=== PATIENT | female | born 1935 | race American Indian/Alaskan Native ===

== ENCOUNTER 2018-03-28 16:28 | Inpatient (IN) | payer MEDICARE ==
[2018-03-28] MEDS ORDERED: NACL 0.9% 500 ML 500 ML IV ONE (17:10)
--- NOTE | 2018-03-28 17:16 | Emergency Department Report ---
ED General Adult HPI - General Stated complaint: ELVATED TEMP 102 Time Seen by Provider: 03/28/18 17:01 - History of Present Illness Initial comments: 82-year-old female that was transported via EMS with a reported fever since noon today. EMS stated the temperature was 102 on their arrival. Patient's glucose was in the 200s. She is a type II diabetic. I do note that she is on multiple psychiatric medications and does have a history of dementia. She has been in the current assisted for the last 2 weeks. They noticed a change in her behavior today. They checked her temperature. This far as I know she does not have any specific symptoms. She is not providing any spontaneous medical history. However she is arousable. She basically answers no to any specific question. She does seem to express understanding of the question. She is not specifically stating her name or that she is in a hospital. She denies headache , chest pain, abdominal pain, nausea vomiting diarrhea. Her review of systems grossly negative. -: hour(s) Associated Symptoms: denies other symptoms ED Review of Systems ROS: Stated complaint: ELVATED TEMP 102 Other details as noted in HPI Comment: Unobtainable due to pts medical conditions ED Past Medical Hx - Past Medical History Hx Diabetes: No Hx Psychiatric Treatment: No Hx Dementia: No ED Course Vital Signs 03/28/18 17:00 Temperature 101.1 F H Pulse Rate 90 Respiratory 16 Rate Blood Pressure 135/70 Blood Pressure 135/70 [Left] O2 Sat by Pulse 97 Oximetry - Reevaluation(s) Reevaluation #1: Nurse informs me that the patient had genital discharge consistent with yeast. She said the urine didn't look that bad on straight cath. The patient is a diabetic with a temperature of 102 or greater. She will be treated for presumed sepsis with urinalysis pending. She will be started on Diflucan. She will be admitted to a MedSurg floor. 03/28/18 18:34 ED Medical Decision Making - Lab Data Result diagrams: 03/28/18 17:34 03/28/18 17:34 Laboratory Results - last 24 hr 03/28/18 03/28/18 03/28/18 17:34 17:34 17:34 WBC 10.3 RBC 4.75 Hgb 12.3 Hct 37.9 MCV 80 MCH 26 L MCHC 32 RDW 14.3 Plt Count 182 Lymph % (Auto) 10.0 L [place] % (Auto) 6.3 Eos % (Auto) 0.3 Baso % (Auto) 0.2 Lymph # 1.0 L [place] # 0.6 Eos # 0.0 Baso # 0.0 Seg Neutrophils % 83.2 H Seg Neutrophils # 8.6 H PT 14.2 INR 1.05 APTT 28.7 VBG pH Sodium 133 L Potassium 3.9 Chloride 94.4 L Carbon Dioxide 26 Anion Gap 17 BUN 22 H Creatinine 0.9 Estimated GFR > 60 BUN/Creatinine Ratio 24 Glucose 203 H Lactic Acid Calcium 9.2 Total Bilirubin 0.30 AST 22 ALT 15 Alkaline Phosphatase 95 NT-Pro-B Natriuret Pep 159.0 Total Protein 7.7 Albumin 3.9 Albumin/Globulin Ratio 1.0 03/28/18 03/28/18 17:34 17:34 WBC RBC Hgb Hct MCV MCH MCHC RDW Plt Count Lymph % (Auto) [place] % (Auto) Eos % (Auto) Baso % (Auto) Lymph # [place] # Eos # Baso # Seg Neutrophils % Seg Neutrophils # PT INR APTT VBG pH 7.385 Sodium Potassium Chloride Carbon Dioxide Anion Gap BUN Creatinine Estimated GFR BUN/Creatinine Ratio Glucose Lactic Acid 1.40 Calcium Total Bilirubin AST ALT Alkaline Phosphatase NT-Pro-B Natriuret Pep Total Protein Albumin Albumin/Globulin Ratio Critical care attestation.: If time is entered above; I have spent that time in minutes in the direct care of this critically ill patient, excluding procedure time. ED Disposition Clinical Impression: Febrile illness, acute, Hyponatremia Hyperglycemia due to type 2 diabetes mellitus Qualifiers: Diabetes mellitus correction insulin use: without correction use Qualified Code(s ): E11.65 - Type 2 diabetes mellitus with hyperglycemia Disposition: OP ADMIT IP TO THIS HOSP Is pt being admited?: Yes Does the pt Need Aspirin: Yes Condition: Stable Instructions: Diabetes Mellitus Type 2 in Adults (ED) Time of Disposition: 18:36
[2018-03-28 17:38] LABS: Basophils % (Auto) 0.2 % (0.0-1.8); Eosinophils % (Auto) 0.3 % (0.0-4.3); Hematocrit 37.9 % (30.3-42.9); Hemoglobin 12.3 gm/dl (10.1-14.3); Mean Corpuscular HGB Conc 32 % (30-34); Mean Corpuscular Volume 80 fl (79-97); Monocytes # (Auto) 0.6 K/mm3 (0.0-0.8); Monocytes % (Auto) 6.3 % (0.0-7.3); Platelet Count 182 K/mm3 (140-440); Red Blood Count 4.75 M/mm3 (3.65-5.03); Red Cell Distribution Width 14.3 % (13.2-15.2)
[2018-03-28 17:40] LABS: Mean Corpuscular Hemoglobin 26 pg (28-32)
--- NOTE | 2018-03-28 17:51 | XRay Report ---
FINAL REPORT EXAM: XR CHEST 1V AP HISTORY: possible Sepsis TECHNIQUE: AP portable view of the chest PRIORS: None. FINDINGS: Lines, tubes, and devices: N/A Lungs and pleura: Trachea is normal in position. Lungs are clear of infiltrate, pleural effusion, vascular congestion, or pneumothorax. Cardiomediastinal silhouette: Cardiac silhouette is borderline enlarged in size.. The aorta is mildly unfolded, likely age related. Calcification of the aorta is noted. Other: Bony structures are intact. IMPRESSION: No acute cardiopulmonary process seen.
[2018-03-28 17:59] LABS: INR 1.05 (0.87-1.13)
[2018-03-28 18:00] LABS: Partial Thromboplastin Time 28.7 Sec. (24.2-36.6)
[2018-03-28 18:03] LABS: Alanine Aminotransferase 15 units/L (7-56); Albumin 3.9 g/dL (3.9-5); BUN/Creatinine Ratio 24; Blood Urea Nitrogen 22 mg/dL (7-17); Calcium 9.2 mg/dL (8.4-10.2); Hemolysis Index 1
[2018-03-28] MEDS ORDERED: BABY ASPIRIN PO ONE (18:36)
[2018-03-28] MEDS ORDERED: NACL 0.9% 1000 ML 1,000 ML IV ONE (18:39)
[2018-03-28] MEDS ORDERED: TYLENOL PO ONE (18:39)
[2018-03-28] MEDS ORDERED: ZOSYN/NS 3.375GM/50ML 3.375 GM/50 ML BAG IV SCH (19:00)
[2018-03-28] MEDS ORDERED: VANCOMYCIN PHARMACY TO DOSE IV SCH (19:00)
[2018-03-28] MEDS ORDERED: VANCOMYCIN VIAL 1,250 MG in NACL 0.9% 250ML 250 ML IV ONE (19:00)
[2018-03-28 19:01] LABS: Bilirubin,Urine NEG (Negative); Blood,Urine SM (Negative); Color,Urine Yellow (Yellow); Hyaline Casts,Urine 3 /LPF; Mucus,Urine FEW /HPF; Protein,Urine <15 mg/dL mg/dL (Negative); Urobilinogen,Urine < 2.0 mg/dL (<2.0)
[2018-03-28] MEDS: DIFLUCAN PO SCH (19:25)
--- NOTE | 2018-03-28 20:44 | History and Physical Report ---
History of Present Illness Date of examination: 03/28/18 Date of admission: 03/28/18 18:37 Chief complaint: Chief complaint Fever for one day History of present illness: History of Present Illness 82-year-old female that was transported via EMS with a reported fever since noon today. EMS stated the temperature was 102 on their arrival. Patient's glucose was in the 200s. She is a type II diabetic. She is on multiple psychiatric medications and does have a history of dementia. She has been in the current nursing home for the last 2 weeks. They noticed a change in her behavior today. They checked her temperature. This far as I know she does not have any specific symptoms. She is not providing any spontaneous medical history. However she is arousable. She basically answers no to any specific question. She does seem to express understanding of the question. She is not specifically stating her name or that she is in a hospital. She denies headache , chest pain, abdominal pain, nausea vomiting diarrhea. Her review of systems grossly negative. Past Medical History Hx Diabetes: No Hx Psychiatric Treatment: No Hx Dementia: No Family history Hypertension Social history Not a smoker and lives in nursing home facility Surgical history Not available Review of Systems ROS: Stated complaint: ELVATED TEMP 102 Other details as noted in HPI Comment: Unobtainable due to pts medical conditions Medications and Allergies Allergies Allergy/AdvReac Type Severity Reaction Status Date / Time No Known Allergies Allergy Verified 03/28/18 19:12 Active Meds: Active Medications Fluconazole (Diflucan) 100 mg PO QDAY [facility] Last Admin: 03/28/18 19:25 Dose: 100 mg Piperacillin Sod/Tazobactam Sod (Zosyn/Ns 3.375gm/50ml) 3.375 gm in 50 mls @ 100 mls/hr IV Q6H [facility]; Protocol Last Admin: 03/28/18 19:28 Dose: 100 mls/hr Sodium Chloride (Nacl 0.9% 1000 Ml) 1,000 mls @ 125 mls/hr IV ONCE ONE Stop: 03/29/18 02:38 Last Admin: 03/28/18 18:49 Dose: 125 mls/hr Vancomycin HCl (Vancomycin/Ns 1 Gm/250 Ml) 1 gm in 250 mls @ 166.667 mls/hr IV Q12H [facility] Vancomycin HCl (Vancomycin Pharmacy To Dose) 1 each IV PKCONSULT [facility]; Protocol Exam - Constitutional Vitals: Temp Pulse Resp BP Pulse Ox 100.1 F H 95 H 16 109/63 97 03/28/18 19:30 03/28/18 19:30 03/28/18 19:30 03/28/18 19:30 03/28/18 19:30 General appearance: Present: no acute distress, well-nourished - EENT Eyes: Present: PERRL ENT: hearing intact, clear oral mucosa - Neck Neck: Present: supple, normal ROM - Respiratory Respiratory effort: normal Respiratory: bilateral: CTA - Cardiovascular Heart Sounds: Present: S1 & S2. Absent: rub, click - Extremities Extremities: pulses symmetrical, No edema Peripheral Pulses: within normal limits - Abdominal General gastrointestinal: Present: soft, non-tender, non-distended, normal bowel sounds Female genitourinary: Present: normal - Integumentary Integumentary: Present: clear, warm, dry - Musculoskeletal Musculoskeletal: gait normal, strength equal bilaterally - Psychiatric Psychiatric: appropriate mood/affect, intact judgment & insight - Neurologic Neurologic: CNII-XII intact, moves all extremities Results - Labs CBC & Chem 7: 03/28/18 17:34 03/28/18 17:34 Labs: Laboratory Last Values WBC 10.3 K/mm3 (4.5-11.0) 03/28/18 17:34 RBC 4.75 M/mm3 (3.65-5.03) 03/28/18 17:34 Hgb 12.3 gm/dl (10.1-14.3) 03/28/18 17:34 Hct 37.9 % (30.3-42.9) 03/28/18 17:34 MCV 80 fl (79-97) 03/28/18 17:34 MCH 26 pg (28-32) L 03/28/18 17:34 MCHC 32 % (30-34) 03/28/18 17:34 RDW 14.3 % (13.2-15.2) 03/28/18 17:34 Plt Count 182 K/mm3 (140-440) 03/28/18 17:34 Lymph % (Auto) 10.0 % (13.4-35.0) L 03/28/18 17:34 [place] % (Auto) 6.3 % (0.0-7.3) 03/28/18 17:34 Eos % (Auto) 0.3 % (0.0-4.3) 03/28/18 17:34 Baso % (Auto) 0.2 % (0.0-1.8) 03/28/18 17:34 Lymph # 1.0 K/mm3 (1.2-5.4) L 03/28/18 17:34 [place] # 0.6 K/mm3 (0.0-0.8) 03/28/18 17:34 Eos # 0.0 K/mm3 (0.0-0.4) 03/28/18 17:34 Baso # 0.0 K/mm3 (0.0-0.1) 03/28/18 17:34 Seg Neutrophils % 83.2 % (40.0-70.0) H 03/28/18 17:34 Seg Neutrophils # 8.6 K/mm3 (1.8-7.7) H 03/28/18 17:34 PT 14.2 Sec. (12.2-14.9) 03/28/18 17:34 INR 1.05 (0.87-1.13) 03/28/18 17:34 APTT 28.7 Sec. (24.2-36.6) 03/28/18 17:34 VBG pH 7.385 (7.320-7.420) 03/28/18 17:34 Sodium 133 mmol/L (137-145) L 03/28/18 17:34 Potassium 3.9 mmol/L (3.6-5.0) 03/28/18 17:34 Chloride 94.4 mmol/L (98-107) L 03/28/18 17:34 Carbon Dioxide 26 mmol/L (22-30) 03/28/18 17:34 Anion Gap 17 mmol/L 03/28/18 17:34 BUN 22 mg/dL (7-17) H 03/28/18 17:34 Creatinine 0.9 mg/dL (0.7-1.2) 03/28/18 17:34 Estimated GFR > 60 ml/min 03/28/18 17:34 BUN/Creatinine Ratio 24 % 03/28/18 17:34 Glucose 203 mg/dL (65-100) H 03/28/18 17:34 Lactic Acid 1.20 mmol/L (0.7-2.0) 03/28/18 19:56 Calcium 9.2 mg/dL (8.4-10.2) 03/28/18 17:34 Total Bilirubin 0.30 mg/dL (0.1-1.2) 03/28/18 17:34 AST 22 units/L (5-40) 03/28/18 17:34 ALT 15 units/L (7-56) 03/28/18 17:34 Alkaline Phosphatase 95 units/L (35-129) 03/28/18 17:34 NT-Pro-B Natriuret Pep 159.0 pg/mL (0-900) 03/28/18 17:34 Total Protein 7.7 g/dL (6.3-8.2) 03/28/18 17:34 Albumin 3.9 g/dL (3.9-5) 03/28/18 17:34 Albumin/Globulin Ratio 1.0 % 03/28/18 17:34 Urine Color Yellow (Yellow) 03/28/18 18:20 Urine Turbidity Clear (Clear) 03/28/18 18:20 Urine pH 5.0 (5.0-7.0) 03/28/18 18:20 Ur Specific [place] 1.017 (1.003-1.030) 03/28/18 18:20 Urine Protein <15 mg/dl mg/dL (Negative) 03/28/18 18:20 Urine Glucose (UA) Neg mg/dL (Negative) 03/28/18 18:20 Urine Ketones Neg mg/dL (Negative) 03/28/18 18:20 Urine Blood Sm (Negative) 03/28/18 18:20 Urine Nitrite Neg (Negative) 03/28/18 18:20 Urine Bilirubin Neg (Negative) 03/28/18 18:20 Urine Urobilinogen < 2.0 mg/dL (<2.0) 03/28/18 18:20 Ur Leukocyte Esterase Neg (Negative) 03/28/18 18:20 Urine WBC (Auto) 2.0 /HPF (0.0-6.0) 03/28/18 18:20 Urine RBC (Auto) 1.0 /HPF (0.0-6.0) 03/28/18 18:20 U Epithel Cells (Auto) < 1.0 /HPF (0-13.0) 03/28/18 18:20 Hyaline Casts 3 /LPF 03/28/18 18:20 Urine Mucus Few /HPF 03/28/18 18:20 Short CBC 03/28/18 Range/Units 17:34 WBC 10.3 (4.5-11.0) K/mm3 Hgb 12.3 (10.1-14.3) gm/dl Hct 37.9 (30.3-42.9) % Plt Count 182 (140-440) K/mm3 BMP 03/28/18 17:34 Sodium 133 L Potassium 3.9 Chloride 94.4 L Carbon Dioxide 26 BUN 22 H Creatinine 0.9 Glucose 203 H Calcium 9.2 Liver Function 03/28/18 Range/Units 17:34 Total Bilirubin 0.30 (0.1-1.2) mg/dL AST 22 (5-40) units/L ALT 15 (7-56) units/L Alkaline Phosphatase 95 (35-129) units/L Albumin 3.9 (3.9-5) g/dL Urine 03/28/18 Range/Units 18:20 Urine Color Yellow (Yellow) Urine pH 5.0 (5.0-7.0) Ur Specific [place] 1.017 (1.003-1.030) Urine Protein <15 mg/dl (Negative) mg/dL Urine Glucose (UA) Neg (Negative) mg/dL Assessment and Plan Advance Directives: Yes (full code) VTE prophylaxis?: Chemical (full code) Plan of care discussed with patient/family: Yes - Patient Problems (1) Sepsis Current Visit: Yes Status: Acute Qualifiers: Sepsis type: sepsis due to unspecified organism Qualified Code(s): A41.9 - Sepsis, unspecified organism Plan to address problem: Source unclear Will treat with Zosyn And vancomycin urine clean (2) Acute encephalopathy Current Visit: Yes Status: Acute Plan to address problem: Secondary to sepsis (3) Hyponatremia Current Visit: Yes Status: Acute Plan to address problem: IV fluids for now (4) Dementia Current Visit: Yes Status: Acute Qualifiers: Dementia type: unspecified type Dementia behavioral disturbance: without behavioral disturbance Qualified Code(s): F03.90 - Unspecified dementia without behavioral disturbance Plan to address problem: Supportive care (5) Hyperglycemia due to type 2 diabetes mellitus Current Visit: Yes Status: Chronic Qualifiers: Diabetes mellitus residential insulin use: without exterminator termite use Qualified Code(s): E11.65 - Type 2 diabetes mellitus with hyperglycemia Plan to address problem: Coverage (6) DVT prophylaxis Current Visit: Yes Status: Acute Plan to address problem: Heparin
[2018-03-28] MEDS ORDERED: ZOFRAN IV PRN (20:45)
[2018-03-28] MEDS ORDERED: TYLENOL PO PRN (20:45)
[2018-03-28] MEDS ORDERED: SODIUM CHLORIDE FLUSH SYRINGE 10 ML IV PRN (20:45)
[2018-03-28] MEDS ORDERED: PEPCID PO SCH (22:00)
[2018-03-28] MEDS: PEPCID PO SCH ×2 (23:00→23:03)
[2018-03-28] MEDS: SODIUM CHLORIDE FLUSH SYRINGE 10 ML IV SCH (23:03)
[2018-03-29] MEDS ORDERED: ZOSYN/NS 3.375GM/50ML 3.375 GM/50 ML BAG IV SCH (03:00)
[2018-03-29] MEDS: NACL 0.9% 1000 ML 1,000 ML IV SCH ×3 (03:20→19:29)
[2018-03-29] MEDS: ZOSYN/NS 3.375GM/50ML 3.375 GM/50 ML BAG IV SCH ×3 (03:25→22:15)
[2018-03-29 05:47] LABS: Basophils % (Auto) 0.4 % (0.0-1.8); Eosinophils # (Auto) 0.1 K/mm3 (0.0-0.4); Eosinophils % (Auto) 1.4 % (0.0-4.3); Hematocrit 33.9 % (30.3-42.9); Hemoglobin 10.7 gm/dl (10.1-14.3); Lymphocytes # (Auto) 1.1 K/mm3 (1.2-5.4); Lymphocytes % (Auto) 11.4 % (13.4-35.0); Mean Corpuscular HGB Conc 32 % (30-34); Mean Corpuscular Volume 81 fl (79-97); Monocytes % (Auto) 9.7 % (0.0-7.3); Platelet Count 162 K/mm3 (140-440); Red Blood Count 4.19 M/mm3 (3.65-5.03); Red Cell Distribution Width 14.4 % (13.2-15.2)
[2018-03-29 05:50] LABS: Mean Corpuscular Hemoglobin 26 pg (28-32)
[2018-03-29 06:10] LABS: Alanine Aminotransferase 12 units/L (7-56); Albumin 3.3 g/dL (3.9-5); BUN/Creatinine Ratio 20; Blood Urea Nitrogen 14 mg/dL (7-17); Calcium 8.2 mg/dL (8.4-10.2); Hemolysis Index 2
[2018-03-29] MEDS: PEPCID PO SCH ×2 (10:42→22:06)
[2018-03-29] MEDS: DIFLUCAN PO SCH (10:43)
[2018-03-29] MEDS: SODIUM CHLORIDE FLUSH SYRINGE 10 ML IV SCH ×2 (10:43→22:14)
--- NOTE | 2018-03-29 10:56 | Progress Note ---
Assessment and Plan (1) Sepsis Current Visit: Yes Status: Acute Qualifiers: Sepsis type: sepsis due to unspecified organism Qualified Code(s): A41.9 - Sepsis, unspecified organism Plan to address problem: Source unclear Will treat with Zosyn And vancomycin urine clean Will get CT abdoman and pelvis (2) Acute encephalopathy - toxic Current Visit: Yes Status: Acute Plan to address problem: Secondary to sepsis (3) Hyponatremia Current Visit: Yes Status: Acute Plan to address problem: IV fluids for now (4) Dementia Current Visit: Yes Status: Acute Qualifiers: Dementia type: unspecified type Dementia behavioral disturbance: without behavioral disturbance Qualified Code(s): F03.90 - Unspecified dementia without behavioral disturbance Plan to address problem: Supportive care (5) Hyperglycemia due to type 2 diabetes mellitus Current Visit: Yes Status: Chronic Qualifiers: Diabetes mellitus intermission coordinator insulin use: without intermission coordinator use Qualified Code(s): E11.65 - Type 2 diabetes mellitus with hyperglycemia Plan to address problem: Coverage with SSI (6) DVT prophylaxis Current Visit: Yes Status: Acute Plan to address problem: Heparin Subjective Date of service: 03/29/18 Principal diagnosis: sepsis, metabolic encephalopathy Interval history: Pt seen and examined. No overnight event. No new comnplaint. Objective - Constitutional Vitals: Vital Signs - 12hr 03/29/18 03/29/18 03:34 07:21 Temperature 99.0 F 97.1 F L Pulse Rate 66 66 Respiratory 17 20 Rate Blood Pressure 135/69 Blood Pressure 112/64 [Left] O2 Sat by Pulse 98 97 Oximetry General appearance: Present: no acute distress, well-nourished, other - EENT Eyes: PERRL, EOM intact - Neck Neck: supple, normal ROM - Respiratory Respiratory effort: normal Respiratory: bilateral: CTA - Cardiovascular Rhythm: regular Heart Sounds: Present: S1 & S2. Absent: gallop, rub Extremities: pulses intact, No edema, normal color, Full ROM - Gastrointestinal General gastrointestinal: Present: soft, non-tender, non-distended, normal bowel sounds - Integumentary Integumentary: clear, warm, dry - Musculoskeletal Musculoskeletal: generalized weakness - Neurologic Neurologic: other (confused) - Psychiatric Psychiatric: agitated - Labs CBC & Chem 7: 03/29/18 04:57 03/29/18 04:57 Labs: Abnormal lab results 03/28/18 03/28/18 03/28/18 Range/Units 17:34 17:34 17:34 MCH 26 L (28-32) pg Lymph % (Auto) 10.0 L (13.4-35.0) % [place] % (Auto) (0.0-7.3) % Lymph # 1.0 L (1.2-5.4) K/mm3 [place] # (0.0-0.8) K/mm3 Seg Neutrophils % 83.2 H (40.0-70.0) % Seg Neutrophils # 8.6 H (1.8-7.7) K/mm3 Sodium 133 L (137-145) mmol/L Chloride 94.4 L (98-107) mmol/L BUN 22 H (7-17) mg/dL Glucose 203 H (65-100) mg/dL POC Glucose (70-105) Hemoglobin A1c 8.0 H (4-6) % Calcium (8.4-10.2) mg/dL Total Protein (6.3-8.2) g/dL Albumin (3.9-5) g/dL 03/29/18 03/29/18 03/29/18 Range/Units 04:57 04:57 07:24 MCH 26 L (28-32) pg Lymph % (Auto) 11.4 L (13.4-35.0) % [place] % (Auto) 9.7 H (0.0-7.3) % Lymph # 1.1 L (1.2-5.4) K/mm3 [place] # 1.0 H (0.0-0.8) K/mm3 Seg Neutrophils % 77.1 H (40.0-70.0) % Seg Neutrophils # (1.8-7.7) K/mm3 Sodium (137-145) mmol/L Chloride (98-107) mmol/L BUN (7-17) mg/dL Glucose 148 H (65-100) mg/dL POC Glucose 142 H (70-105) Hemoglobin A1c (4-6) % Calcium 8.2 L (8.4-10.2) mg/dL Total Protein 6.0 L D (6.3-8.2) g/dL Albumin 3.3 L (3.9-5) g/dL
--- NOTE | 2018-03-29 17:14 | Cat Scan Report ---
FINAL REPORT EXAM: CT ABDOMEN PELVIS W CON HISTORY: sepsis TECHNIQUE: Standard enhanced CT of the abdomen and pelvis. Coronal and sagittal reconstruction was also performed. Delayed imaging of the kidneys and bladder was obtained. Contrast: 100 mL Omnipaque 300 given IV. 450 cc Readi-Cat given as oral. PRIORS: None. FINDINGS: Within the abdomen, the liver, spleen, pancreas, gallbladder, and adrenal glands are unremarkable. There is a 4.0 cm cyst off upper pole right kidney. Several smaller cysts are present in both kidneys. No evidence for retroperitoneal or pelvic lymphadenopathy is seen. The bowel loops have normal caliber. No soft tissue mass, fluid collection, inflammatory change, or free air is seen within the abdomen or pelvis. The appendix is not well-visualized. Moderate calcification of aorta is seen. Diverticulosis is scattered throughout the colon but most marked in the descending and sigmoid region. No evidence for active diverticulitis seen. Within the pelvis, the bladder is unremarkable. The uterus is atrophic. No evidence for mass or lymphadenopathy is seen in the pelvis. Images through the upper abdomen include the lung bases which demonstrates mild bibasilar atelectasis. Bony structures show degenerative disc changes throughout the lumbar spine with bilateral facet joint degenerative changes at L3 through S1. 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 IMPRESSION: No acute intra-abdominal process noted. Bilateral renal cysts and diverticulosis. Mild bibasilar atelectasis
[2018-03-29] MEDS ORDERED: ATIVAN PO PRN (17:38)
[2018-03-29] MEDS ORDERED: VANCOMYCIN/NS 1 GM/250 ML 1 GM/250 ML BAG IV SCH (18:00)
[2018-03-29] MEDS: MORPHINE IV PRN (22:06)
[2018-03-30] MEDS: MORPHINE IV PRN (02:52)
[2018-03-30] MEDS: ZOSYN/NS 3.375GM/50ML 3.375 GM/50 ML BAG IV SCH (04:45)
[2018-03-30 06:03] LABS: Basophils # (Auto) 0.1 K/mm3 (0.0-0.1); Basophils % (Auto) 0.7 % (0.0-1.8); Eosinophils # (Auto) 0.2 K/mm3 (0.0-0.4); Eosinophils % (Auto) 2.3 % (0.0-4.3); Hematocrit 33.8 % (30.3-42.9); Hemoglobin 11.3 gm/dl (10.1-14.3); Lymphocytes # (Auto) 1.5 K/mm3 (1.2-5.4); Lymphocytes % (Auto) 18.7 % (13.4-35.0); Mean Corpuscular HGB Conc 33 % (30-34); Mean Corpuscular Hemoglobin 26 pg (28-32); Mean Corpuscular Volume 79 fl (79-97); Monocytes # (Auto) 0.9 K/mm3 (0.0-0.8); Platelet Count 193 K/mm3 (140-440); Red Blood Count 4.29 M/mm3 (3.65-5.03)
[2018-03-30 06:13] LABS: INR 1.09 (0.87-1.13)
[2018-03-30 06:29] LABS: Alanine Aminotransferase 12 units/L (7-56); Albumin 3.4 g/dL (3.9-5); BUN/Creatinine Ratio 10; Blood Urea Nitrogen 6 mg/dL (7-17); Calcium 8.7 mg/dL (8.4-10.2); Hemolysis Index 22
[2018-03-30] MEDS ORDERED: K-DUR PO NR (08:00)
[2018-03-30] MEDS: DIFLUCAN PO SCH (10:01)
[2018-03-30] MEDS: PEPCID PO SCH (10:01)
[2018-03-30] MEDS: SODIUM CHLORIDE FLUSH SYRINGE 10 ML IV SCH (10:02)
--- NOTE | 2018-03-30 11:12 | Progress Note ---
Subjective Date of service: 03/30/18 Principal diagnosis: sepsis, metabolic encephalopathy Objective - Constitutional Vitals: Vital Signs - 12hr 03/30/18 03/30/18 03/30/18 00:30 03:08 07:25 Temperature 98.6 F 98.7 F 97.7 F Pulse Rate 72 60 64 Respiratory 18 16 18 Rate Blood Pressure 114/65 133/74 Blood Pressure 158/75 [Left] O2 Sat by Pulse 95 99 97 Oximetry - Labs CBC & Chem 7: 03/30/18 05:37 03/30/18 05:37 Labs: Abnormal lab results 03/29/18 03/29/18 03/29/18 Range/Units 11:35 16:19 22:22 MCH (28-32) pg [place] % (Auto) (0.0-7.3) % [place] # (0.0-0.8) K/mm3 Potassium (3.6-5.0) mmol/L BUN (7-17) mg/dL Creatinine (0.7-1.2) mg/dL Glucose (65-100) mg/dL POC Glucose 121 H 131 H 141 H (70-105) Magnesium (1.7-2.3) mg/dL Albumin (3.9-5) g/dL 03/30/18 03/30/18 03/30/18 Range/Units 05:37 05:37 07:32 MCH 26 L (28-32) pg [place] % (Auto) 11.0 H (0.0-7.3) % [place] # 0.9 H (0.0-0.8) K/mm3 Potassium 3.3 L (3.6-5.0) mmol/L BUN 6 L (7-17) mg/dL Creatinine 0.6 L (0.7-1.2) mg/dL Glucose 149 H (65-100) mg/dL POC Glucose 134 H (70-105) Magnesium 1.20 L (1.7-2.3) mg/dL Albumin 3.4 L (3.9-5) g/dL
[2018-03-30] MEDS ORDERED: AUGMENTIN 500 MG PO SCH (13:00)
[2018-03-30] MEDS: NACL 0.9% 1000 ML 1,000 ML IV SCH (13:53)
--- NOTE | 2018-03-30 14:43 | Discharge Summary ---
Providers - Providers Date of Admission: 03/28/18 18:37 Date of discharge: 03/30/18 Attending physician: BRENDA CLARK 03/28/18 Consult to Case Management [CONS] Routine Services Needed at Discharge: Home Health Services Notified:: lizzie Primary care physician: WEBBING INSPECTOR Hospitalization Condition: Stable Hospital course: 1) Sepsis Current Visit: Yes Status: Acute Qualifiers: Sepsis type: sepsis due to unspecified organism Qualified Code(s): A41.9 - Sepsis, unspecified organism Plan to address problem: Source unclear Will treat with Zosyn And vancomycin urine clean Will get CT abdoman and pelvis (2) Acute encephalopathy - toxic Current Visit: Yes Status: Acute Plan to address problem: Secondary to sepsis (3) Hyponatremia Current Visit: Yes Status: Acute Plan to address problem: IV fluids for now (4) Dementia Current Visit: Yes Status: Acute Qualifiers: Dementia type: unspecified type Dementia behavioral disturbance: without behavioral disturbance Qualified Code(s): F03.90 - Unspecified dementia without behavioral disturbance Plan to address problem: Supportive care (5) Hyperglycemia due to type 2 diabetes mellitus Current Visit: Yes Status: Chronic Qualifiers: Diabetes mellitus middle or intermediate school principal insulin use: without usp use Qualified Code(s): E11.65 - Type 2 diabetes mellitus with hyperglycemia Plan to address problem: Coverage with SSI (6) DVT prophylaxis Current Visit: Yes Status: Acute Plan to address problem: Heparin Disposition: DC-01 TO HOME OR SELFCARE Time spent for discharge: 32 minutes Exam - Constitutional Vitals: Temp Pulse Resp BP Pulse Ox 97.7 F 64 18 133/74 97 03/30/18 07:25 03/30/18 07:25 03/30/18 07:25 03/30/18 07:25 03/30/18 07:25 Plan Activity: fall precautions Weight Bearing Status: Non-Weight Bearing Diet: regular Follow up with: PRIMARY CARE, [Primary Care Provider] - 3-5 Days Prescriptions: Amoxicillin/K Clav Tab [Augmentin 500 MG TAB] 1 each PO BID #14 tablet
[2018-03-30 20:40] VITALS: BP 145/75
[2018-03-30] MEDS ORDERED: LOPRESSOR PO SCH (22:00)
[2018-03-30] MEDS ORDERED: NAMENDA PO SCH (22:00)
[2018-03-30] MEDS ORDERED: NON-FORMULARY (Risperidone [Risperdal] 2 MG) PO SCH (22:00)
[2018-03-30] MEDS ORDERED: REMERON PO SCH (22:00)
[2018-03-30] MEDS ORDERED: ARICEPT PO SCH (22:00)
[2018-03-31] MEDS ORDERED: COZAAR PO SCH (10:00)
[2018-03-31] MEDS ORDERED: NORVASC PO SCH (10:00)
== END 2018-03-30 21:00 | disposition home health service (06) | DRG 871 ==
LOC: ED 16:28 → 3A 18:37 → 2B-ACE 19:26
PROVIDERS: ADMIT Internal Medicine; ATTEND Internal Medicine
DX: A41.9 Sepsis, unspecified organism (principal); G92 Toxic encephalopathy; E87.1 Hypo-osmolality and hyponatremia; E11.65 Type 2 diabetes mellitus with hyperglycemia; F03.90 Unspecified dementia, unspecified severity, without behavioral disturbance, psychotic disturbance, mood disturbance, and anxiety; Z82.49 Family history of ischemic heart disease and other diseases of the circulatory system; Z79.4 Long term (current) use of insulin
CPT/HCPCS: 36415; 71045; 74177; 80053; 81001; 82140; 82805; 82962; 83036; 83735; 83880; 84100; 85025; 85610; 85730; 87040; 87076; 87086; 87186; 93005; 93010; J2270; J2543; J3370; J7030; J7040; J7050; Q9967

== ENCOUNTER 2018-04-05 10:07 | Emergency (ER) | payer MEDICARE ==
[2018-04-05 10:57] LABS: Basophils # (Auto) 0.1 K/mm3 (0.0-0.1); Basophils % (Auto) 0.7 % (0.0-1.8); Eosinophils % (Auto) 0.3 % (0.0-4.3); Hematocrit 34.6 % (30.3-42.9); Hemoglobin 11.4 gm/dl (10.1-14.3); Lymphocytes # (Auto) 0.5 K/mm3 (1.2-5.4); Lymphocytes % (Auto) 5.3 % (13.4-35.0); Mean Corpuscular HGB Conc 33 % (30-34); Mean Corpuscular Hemoglobin 26 pg (28-32); Mean Corpuscular Volume 79 fl (79-97); Monocytes # (Auto) 0.5 K/mm3 (0.0-0.8); Monocytes % (Auto) 5.1 % (0.0-7.3); Platelet Count 217 K/mm3 (140-440); Red Blood Count 4.37 M/mm3 (3.65-5.03); Red Cell Distribution Width 14.2 % (13.2-15.2)
[2018-04-05 11:16] LABS: Albumin 3.9 g/dL (3.9-5); Calcium 9.6 mg/dL (8.4-10.2)
[2018-04-05 11:33] LABS: Bilirubin,Urine NEG (Negative); Blood,Urine NEG (Negative); Color,Urine Amber (Yellow); Mucus,Urine FEW /HPF
--- NOTE | 2018-04-05 11:45 | Emergency Department Report ---
ED Altered Mental Status HPI - General Chief Complaint: Altered Mental Status Stated Complaint: ALTERED MENTAL STATUS Time Seen by Provider: 04/05/18 11:35 Source: EMS Mode of arrival: Stretcher Limitations: Altered Mental Status - History of Present Illness Initial Comments: Patient is 82 years old female with history of diabetes, hypertension, dementia on multiple psychiatric medication, prison patient. Patient brought to the ER for evaluation of altered mental status with decreased responsiveness, unknown time of onset. Patient is not communicating, she will only answer to her name. MD Complaint: altered mental status, decreased responsiveness - Related Data Home Medications Medication Instructions Recorded Confirmed Last Taken Amlodipine Besylate [Norvasc] 10 mg PO DAILY 03/29/18 03/29/[address] [Depakote Dr] 125 mg PO DAILY 03/29/18 03/29/18 Unknown Divalproex Sodium [Depakote] 250 mg PO QHS 03/29/18 03/29/18 Unknown Donepezil HCl 10 mg PO QHS 03/29/18 03/29/18 Unknown Losartan Potassium [Cozaar] 50 mg PO DAILY 03/29/18 03/29/18 Unknown Memantine [Namenda] 10 mg PO BID 03/29/18 03/29/18 Unknown Metoprolol [Lopressor TAB] 50 mg PO QHS 03/29/18 03/29/18 Unknown Mirtazapine 15 mg PO QHS 03/29/18 03/29/18 Unknown QUEtiapine [SEROquel] 25 mg PO BID 03/29/18 03/29/18 Unknown Sitagliptin Phos/Metformin HCl 1 tab PO DAILY 03/29/18 03/29/18 Unknown [Janumet 50-500 mg Tablet] risperiDONE [Risperdal] 2 mg PO BID 03/29/18 03/29/18 Unknown Previous Rx's Medication Instructions Recorded Last Taken Type Amoxicillin/K Clav Tab [Augmentin 1 each PO BID #14 tablet 03/30/18 Unknown Rx 500 MG TAB] Allergies Allergy/AdvReac Type Severity Reaction Status Date / Time No Known Allergies Allergy Verified 03/28/18 19:12 ED Review of Systems ROS: Stated complaint: ALTERED MENTAL STATUS Other details as noted in HPI Comment: Unobtainable due to pts medical conditions ED Past Medical Hx - Past Medical History Hx Hypertension: Yes Hx Diabetes: Yes (Non-Insulin Dependent) Hx Psychiatric Treatment: No Hx Dementia: Yes Additional medical history: Depression; cardiomegaly; spinal stenosis - Social History Smoking Status: Unknown if ever smoked Substance Use Type: None - Medications Home Medications: Home Medications Medication Instructions Recorded Confirmed Last Taken Type Amlodipine Besylate [Norvasc] 10 mg PO DAILY 03/29/18 03/29/[address] [Depakote Dr] 125 mg PO DAILY 03/29/18 03/29/18 Unknown History Divalproex Sodium [Depakote] 250 mg PO QHS 03/29/18 03/29/18 Unknown History Donepezil HCl 10 mg PO QHS 03/29/18 03/29/18 Unknown History Losartan Potassium [Cozaar] 50 mg PO DAILY 03/29/18 03/29/18 Unknown History Memantine [Namenda] 10 mg PO BID 03/29/18 03/29/18 Unknown History Metoprolol [Lopressor TAB] 50 mg PO QHS 03/29/18 03/29/18 Unknown History Mirtazapine 15 mg PO QHS 03/29/18 03/29/18 Unknown History QUEtiapine [SEROquel] 25 mg PO BID 03/29/18 03/29/18 Unknown History Sitagliptin Phos/Metformin HCl 1 tab PO DAILY 03/29/18 03/29/18 Unknown History [Janumet 50-500 mg Tablet] risperiDONE [Risperdal] 2 mg PO BID 03/29/18 03/29/18 Unknown History Amoxicillin/K Clav Tab [Augmentin 1 each PO BID #14 tablet 03/30/18 Unknown Rx 500 MG TAB] ED Physical Exam - General Limitations: Altered Mental Status General appearance: obtunded - Head Head exam: Present: atraumatic, normocephalic, normal inspection - ENT ENT exam: Present: normal exam, mucous membranes moist, TM's normal bilaterally , normal external ear exam - Neck Neck exam: Present: normal inspection, full ROM. Absent: tenderness, meningismus, lymphadenopathy, thyromegaly - Respiratory Respiratory exam: Present: normal lung sounds bilaterally - Cardiovascular Cardiovascular Exam: Present: regular rate, normal rhythm, normal heart sounds - GI/Abdominal GI/Abdominal exam: Present: soft, normal bowel sounds. Absent: distended, tenderness, guarding, rebound, rigid, organomegaly, mass, bruit, pulsatile mass - Extremities Exam Extremities exam: Present: normal inspection, full ROM, normal capillary refill - Neurological Exam Neurological exam: Present: altered - Skin Skin exam: Present: warm, intact, normal color ED Course Vital Signs 04/05/18 04/05/18 04/05/18 10:23 10:45 11:00 Temperature 97.6 F Pulse Rate 77 68 Respiratory 20 19 15 Rate Blood Pressure 127/66 Blood Pressure 114/76 [Left] O2 Sat by Pulse 97 100 Oximetry 04/05/18 04/05/18 04/05/18 11:15 15:11 18:18 Temperature 97.4 F L Pulse Rate 67 72 97 H Respiratory 16 17 16 Rate Blood Pressure 125/66 Blood Pressure 129/70 119/78 [Left] O2 Sat by Pulse 100 100 Oximetry - Reevaluation(s) Reevaluation #1: 04/05/18 15:02 Patient now is awake and alert and able to answer some questions. Reevaluation #2: 04/05/18 16:02 Patient is aware, alert slightly drowsy some question. No acute distress. - Lab Data Result diagrams: 04/05/18 10:39 04/05/18 10:39 Lab Results 04/05/18 04/05/18 04/05/18 Range/Units 10:28 10:28 10:39 WBC 9.6 (4.5-11.0) K/mm3 RBC 4.37 (3.65-5.03) M/mm3 Hgb 11.4 (10.1-14.3) gm/dl Hct 34.6 (30.3-42.9) % MCV 79 (79-97) fl MCH 26 L (28-32) pg MCHC 33 (30-34) % RDW 14.2 (13.2-15.2) % Plt Count 217 (140-440) K/mm3 Lymph % (Auto) 5.3 L (13.4-35.0) % Eagle % (Auto) 5.1 (0.0-7.3) % Eos % (Auto) 0.3 (0.0-4.3) % Baso % (Auto) 0.7 (0.0-1.8) % Lymph # 0.5 L (1.2-5.4) K/mm3 Eagle # 0.5 (0.0-0.8) K/mm3 Eos # 0.0 (0.0-0.4) K/mm3 Baso # 0.1 (0.0-0.1) K/mm3 Seg Neutrophils % 88.6 H (40.0-70.0) % Seg Neutrophils # 8.5 H (1.8-7.7) K/mm3 Sodium (137-145) mmol/L Potassium (3.6-5.0) mmol/L Chloride (98-107) mmol/L Carbon Dioxide (22-30) mmol/L Anion Gap mmol/L BUN (7-17) mg/dL Creatinine (0.7-1.2) mg/dL Estimated GFR ml/min BUN/Creatinine Ratio % Glucose (65-100) mg/dL Calcium (8.4-10.2) mg/dL Total Bilirubin (0.1-1.2) mg/dL AST (5-40) units/L ALT (7-56) units/L Alkaline Phosphatase (35-129) units/L Ammonia (25-60) umol/L Troponin T (0.00-0.029) ng/mL Total Protein (6.3-8.2) g/dL Albumin (3.9-5) g/dL Albumin/Globulin Ratio % TSH (0.270-4.200) mlU/mL Urine Color Grace (Yellow) Urine Turbidity Clear (Clear) Urine pH 5.0 (5.0-7.0) Ur Specific [place] 1.020 (1.003-1.030) Urine Protein 30 mg/dl (Negative) mg/dL Urine Glucose (UA) Neg (Negative) mg/dL Urine Ketones Tr (Negative) mg/dL Urine Blood Neg (Negative) Urine Nitrite Neg (Negative) Urine Bilirubin Neg (Negative) Urine Urobilinogen 2.0 (<2.0) mg/dL Ur Leukocyte Esterase Neg (Negative) Urine WBC (Auto) 2.0 (0.0-6.0) /HPF Urine RBC (Auto) 2.0 (0.0-6.0) /HPF U Epithel Cells (Auto) < 1.0 (0-13.0) /HPF Urine Mucus Few /HPF Urine Opiates Screen Presumptive negative Urine Methadone Screen Presumptive negative Ur Barbiturates Screen Presumptive negative Ur Phencyclidine Scrn Presumptive negative Ur Amphetamines Screen Presumptive negative U Benzodiazepines Scrn Presumptive negative Urine Cocaine Screen Presumptive negative U Marijuana (THC) Screen Presumptive negative Drugs of Abuse Note Disclamer Plasma/Serum Alcohol (0-0.07) % 04/05/18 04/05/18 04/05/18 Range/Units 10:39 10:39 10:39 WBC (4.5-11.0) K/mm3 RBC (3.65-5.03) M/mm3 Hgb (10.1-14.3) gm/dl Hct (30.3-42.9) % MCV (79-97) fl MCH (28-32) pg MCHC (30-34) % RDW (13.2-15.2) % Plt Count (140-440) K/mm3 Lymph % (Auto) (13.4-35.0) % Eagle % (Auto) (0.0-7.3) % Eos % (Auto) (0.0-4.3) % Baso % (Auto) (0.0-1.8) % Lymph # (1.2-5.4) K/mm3 Eagle # (0.0-0.8) K/mm3 Eos # (0.0-0.4) K/mm3 Baso # (0.0-0.1) K/mm3 Seg Neutrophils % (40.0-70.0) % Seg Neutrophils # (1.8-7.7) K/mm3 Sodium 137 (137-145) mmol/L Potassium 4.8 (3.6-5.0) mmol/L Chloride 97.1 L (98-107) mmol/L Carbon Dioxide 24 (22-30) mmol/L Anion Gap 21 mmol/L BUN 25 H (7-17) mg/dL Creatinine 1.5 H (0.7-1.2) mg/dL Estimated GFR 40 ml/min BUN/Creatinine Ratio 17 % Glucose 267 H (65-100) mg/dL Calcium 9.6 (8.4-10.2) mg/dL Total Bilirubin 0.30 (0.1-1.2) mg/dL AST 14 (5-40) units/L ALT 11 (7-56) units/L Alkaline Phosphatase 84 (35-129) units/L Ammonia (25-60) umol/L Troponin T (0.00-0.029) ng/mL Total Protein 7.3 (6.3-8.2) g/dL Albumin 3.9 (3.9-5) g/dL Albumin/Globulin Ratio 1.1 % TSH 2.160 (0.270-4.200) mlU/mL Urine Color (Yellow) Urine Turbidity (Clear) Urine pH (5.0-7.0) Ur Specific [place] (1.003-1.030) Urine Protein (Negative) mg/dL Urine Glucose (UA) (Negative) mg/dL Urine Ketones (Negative) mg/dL Urine Blood (Negative) Urine Nitrite (Negative) Urine Bilirubin (Negative) Urine Urobilinogen (<2.0) mg/dL Ur Leukocyte Esterase (Negative) Urine WBC (Auto) (0.0-6.0) /HPF Urine RBC (Auto) (0.0-6.0) /HPF U Epithel Cells (Auto) (0-13.0) /HPF Urine Mucus /HPF Urine Opiates Screen Urine Methadone Screen Ur Barbiturates Screen Ur Phencyclidine Scrn Ur Amphetamines Screen U Benzodiazepines Scrn Urine Cocaine Screen U Marijuana (THC) Screen Drugs of Abuse Note Plasma/Serum Alcohol < 0.01 (0-0.07) % 04/05/18 04/05/18 04/05/18 Range/Units 12:17 12:17 18:41 WBC (4.5-11.0) K/mm3 RBC (3.65-5.03) M/mm3 Hgb (10.1-14.3) gm/dl Hct (30.3-42.9) % MCV (79-97) fl MCH (28-32) pg MCHC (30-34) % RDW (13.2-15.2) % Plt Count (140-440) K/mm3 Lymph % (Auto) (13.4-35.0) % Eagle % (Auto) (0.0-7.3) % Eos % (Auto) (0.0-4.3) % Baso % (Auto) (0.0-1.8) % Lymph # (1.2-5.4) K/mm3 [place] # (0.0-0.8) K/mm3 Eos # (0.0-0.4) K/mm3 Baso # (0.0-0.1) K/mm3 Seg Neutrophils % (40.0-70.0) % Seg Neutrophils # (1.8-7.7) K/mm3 Sodium (137-145) mmol/L Potassium (3.6-5.0) mmol/L Chloride (98-107) mmol/L Carbon Dioxide (22-30) mmol/L Anion Gap mmol/L BUN (7-17) mg/dL Creatinine (0.7-1.2) mg/dL Estimated GFR ml/min BUN/Creatinine Ratio % Glucose (65-100) mg/dL Calcium (8.4-10.2) mg/dL Total Bilirubin (0.1-1.2) mg/dL AST (5-40) units/L ALT (7-56) units/L Alkaline Phosphatase (35-129) units/L Ammonia 19.0 L (25-60) umol/L Troponin T < 0.010 < 0.010 (0.00-0.029) ng/mL Total Protein (6.3-8.2) g/dL Albumin (3.9-5) g/dL Albumin/Globulin Ratio % TSH (0.270-4.200) mlU/mL Urine Color (Yellow) Urine Turbidity (Clear) Urine pH (5.0-7.0) Ur Specific [place] (1.003-1.030) Urine Protein (Negative) mg/dL Urine Glucose (UA) (Negative) mg/dL Urine Ketones (Negative) mg/dL Urine Blood (Negative) Urine Nitrite (Negative) Urine Bilirubin (Negative) Urine Urobilinogen (<2.0) mg/dL Ur Leukocyte Esterase (Negative) Urine WBC (Auto) (0.0-6.0) /HPF Urine RBC (Auto) (0.0-6.0) /HPF U Epithel Cells (Auto) (0-13.0) /HPF Urine Mucus /HPF Urine Opiates Screen Urine Methadone Screen Ur Barbiturates Screen Ur Phencyclidine Scrn Ur Amphetamines Screen U Benzodiazepines Scrn Urine Cocaine Screen U Marijuana (THC) Screen Drugs of Abuse Note Plasma/Serum Alcohol (0-0.07) % - EKG Data -: EKG Interpreted by Ak EKG shows normal: sinus rhythm Rate: normal Interpretation: no acute changes - Radiology Data Radiology results: report reviewed Referring Physician: ALEXANDRO BUCKLEY Patient Name: BERNARDO CERVANTES Date of : 1935 Sex: Female Report Date: 2018-04-05 Report Status: Finalized Findings [address] [address] XRay Report Signed Patient: BERNARDO CERVANTES MR#: [id number] : 1935 Acct:[id number] Age/Sex: 82 / F ADM Date: 04/05/18 Loc: ED Attending Dr: Ordering Physician: ALEXANDRO BUCKLEY Date of Service: 04/05/18 Procedure(s): XR chest 1V ap Accession Number(s): [id number] cc: ALEXANDRO BUCKLEY Fluoro Time In Minutes: AP CHEST: HISTORY: Altered mental status Compared to 03/28/18. There is poor inspiration with bibasilar atelectatic changes. The upper lung zones are clear. No convincing pneumonia, pleural effusion or pneumothorax. Heart size and pulmonary venous structures are borderline to mildly increased. IMPRESSION: Limited exam with poor inspiration. Borderline to mild cardiomegaly and pulmonary venous congestion. Mild bibasilar atelectatic changes. Transcribed By: TTR Dictated By: CANELO CHAIDEZ JR, MD Electronically Authenticated By: CANELO CHAIDEZ JR, MD Signed Date/Time: 04/05/18 1208 Referring Physician: ALEXANDRO BUCKLEY Patient Name: BERNARDO CERVANTES Date of : 1935 Sex: Female Report Date: 2018-04-05 Report Status: Finalized Findings [address] [address] Cat Scan Report Signed Patient: BERNARDO CERVANTES MR#: [id number] : 1935 Acct:[id number] Age/Sex: 82 / F ADM Date: 04/05/18 Loc: ED Attending Dr: Ordering Physician: ALEXANDRO BUCKLEY Date of Service: 04/05/18 Procedure(s): CT head/brain wo con Accession Number(s): [id number] cc: ALEXANDRO BUCKLEY CT HEAD WITHOUT CONTRAST: HISTORY: Altered mental status. TECHNIQUE: Sequential 2.5mm CT images. COMPARISON: none. FINDINGS: Cerebral Parenchyma: Within normal limits. Cerebellum: Within normal limits. Brainstem: Within normal limits. Ventricles: Normal. Sella: Normal. Extra-axial spaces: Normal. Basal Cisterns: Normal. Intracranial Hemorrhage: None. Midline Shift: None. Calvarium: Normal. Sinuses: Normal. Mastoid Air Cells: Normal. Visualized Orbits: Normal. IMPRESSION: Cranial CT scan within normal limits. Transcribed By: TTR Dictated By: CANEOL CHAIDEZ JR, MD Electronically Authenticated By: CANELO CHAIDEZ JR, MD Signed Date/Time: 04/05/181430 DD/ 30 TD/TT: 04/05/181430 DD/ 06 TD/TT: 04/05/18 1208 - Medical Decision Making Mrs. Cervantes is an 82 years old history of dementia, she is on multiple psychiatric medication including Seroquel and trazodone and Remeron and Namenda. Patient had extensive workup today including CT brain which is negative for acute finding, chest x-ray is negative for acute finding, two set of troponin is negative, EKG is unremarkable, chest x-ray is unremarkable. Urine is negative for infection. I believe her symptoms is most likely related to her extensive anti-psychiatric medication that is causing had to be sedated. There is no evidence of a stroke at this moment's. Patient will be [facility] back to her [facility]. Critical care attestation.: If time is entered above; I have spent that time in minutes in the direct care of this critically ill patient, excluding procedure time. ED Disposition Clinical Impression: Altered mental status Disposition: DC/TX-70 ANOTHER TYPE HLTHCARE Is pt being admited?: No Condition: Stable Instructions: Altered Mental Status (ED) Referrals: PRIMARY CAREMD [Primary Care Provider] - 3-5 Days
[2018-04-05 11:49] LABS: Amphetamine Screen,Urine PRESUMPTIVE NEGATIVE; Benzodiazepines Screen,Urine PRESUMPTIVE NEGATIVE; Cannabinoid Screen,Urine PRESUMPTIVE NEGATIVE; Cocaine Screen,Urine PRESUMPTIVE NEGATIVE; Methadone Screen,Urine PRESUMPTIVE NEGATIVE; Opiate Screen,Urine PRESUMPTIVE NEGATIVE
--- NOTE | 2018-04-05 12:19 | XRay Report ---
AP CHEST: HISTORY: Altered mental status Compared to 03/28/18. There is poor inspiration with bibasilar atelectatic changes. The upper lung zones are clear. No convincing pneumonia, pleural effusion or pneumothorax. Heart size and pulmonary venous structures are borderline to mildly increased. IMPRESSION: Limited exam with poor inspiration. Borderline to mild cardiomegaly and pulmonary venous congestion. Mild bibasilar atelectatic changes.
--- NOTE | 2018-04-05 14:41 | Cat Scan Report ---
CT HEAD WITHOUT CONTRAST: HISTORY: Altered mental status. TECHNIQUE: Sequential 2.5mm CT images. COMPARISON: none. FINDINGS: Cerebral Parenchyma: Within normal limits. Cerebellum: Within normal limits. Brainstem: Within normal limits. Ventricles: Normal. Sella: Normal. Extra-axial spaces: Normal. Basal Cisterns: Normal. Intracranial Hemorrhage: None. Midline Shift: None. Calvarium: Normal. Sinuses: Normal. Mastoid Air Cells: Normal. Visualized Orbits: Normal. IMPRESSION: Cranial CT scan within normal limits.
[2018-04-05 18:24] VITALS: BP 119/78
== END 2018-04-05 20:51 | disposition other institution (70) ==
LOC: ED 10:07
DX: R41.82 Altered mental status, unspecified (principal); Z53.21 Procedure and treatment not carried out due to patient leaving prior to being seen by health care provider; I10 Essential (primary) hypertension; E11.9 Type 2 diabetes mellitus without complications; F03.90 Unspecified dementia, unspecified severity, without behavioral disturbance, psychotic disturbance, mood disturbance, and anxiety
CPT/HCPCS: 36415; 70450; 71045; 80053; 80307; 81001; 82140; 84443; 84484; 85025; 93005; 93010; 99285; G0480; 80320